=== PATIENT | male | born 1995 | race Caucasian/White ===

== ENCOUNTER → 2021-02-27 16:08 | Outpatient (CLI) | payer BC, OTHER, SELFPAY | PROVIDERS: PCP Family Medicine; Visit Provider Nurse Practitioner | DX: Z20.822 Contact with and (suspected) exposure to COVID-19 (principal) | CPT/HCPCS: C9803; U0003; U0005 ==

== ENCOUNTER 2021-05-22 16:36 | Emergency (ER) | payer BC, SELFPAY ==
--- NOTE | 2021-05-22 16:50 | XR_ITS ---
PROCEDURE INFORMATION: Exam: XR Right Ankle Exam date and time: 05/22/2021 4:50 PM Age: 25 years old Clinical indication: Injury or trauma; Fall; Blunt trauma; Ankle; Right TECHNIQUE: Imaging protocol: XR Right ankle. Views: 3 or more views. COMPARISON: No relevant prior studies available. FINDINGS: Bones/joints: Slightly displaced fracture of the distal fibula. There is no evidence of joint malalignment or dislocation. Soft tissues: Moderate lateral soft tissue swelling. IMPRESSION: 1. Moderate lateral soft tissue swelling. 2. Slightly displaced fracture of the distal fibula. 3. No evidence of acute dislocation.
[2021-05-22 17:00] VITALS: BP 123/68; PULSE 91; RESP 18; TEMP 36.8; O2SAT 99
--- NOTE | 2021-05-22 17:08 | HMH.EDUTC ---
[facility] [place] Clinical Impression: Fractured lateral malleolus Qualifiers: Encounter type: initial encounter Fracture type: closed Fracture alignment: nondisplaced Laterality: right Qualified Code(s): S82.64XA - Nondisplaced fracture of lateral malleolus of right fibula, initial encounter for closed fracture Disposition: Home, Self-Care Condition on Discharge: Good Instructions: How To Perform RICE (Rest, Ice, Compress, Elevate), Ibuprofen Additional Instructions: *No weight bearing *RICE, Rest the extremity, Ice 15-20 minutes 3-4 times daily, Compress- wear the brody wrap as discussed as much as possible to help reduce swelling and pain, Elevate the extremity when at rest *Brody wrap/orthoglass is for support and help control swelling, Be sure that is not to tight but not to loose either *Elevate when resting *Ibuprofen 800mg every 8 hours as needed for pain an inflammation. If need something more can take Tylenol in between doses of Ibuprofen to help Immediately follow up with your family doctor for new or worsening of symptoms, or no noticeable improvement over the next 3-[address] Stephens office first thing in the morning for appointment for tomorrow Return if needed Straight to ER if any life threatening symptoms Prescriptions: Ibuprofen [Ibuprofen 800mg Tablet] 800 mg PO TIDP PRN #20 tab PRN Reason: Moderate Pain Transmission Status: Received by [facility]/pharmacy #[id number] Referrals: ProviderApoorva MD [Primary Care Provider] - Gurmeet Stephens MD [Staff Physician] - 05/23/21 (Call office first thing in the morning for appointment) Forms: Work/School Release Time of Disposition: 17:20 Medical Decision Making - David Inquiry Pt receiving controlled substance: No David was queried for this patient: No Vital Signs: 05/22/21 17:00 05/22/21 17:54 Temperature 98.3 F 98.3 F Temperature Source Oral Pulse Rate 91 H Pulse Rate [Left] 91 H Respiratory Rate 18 18 Blood Pressure 123/68 Blood Pressure [Right Arm] 123/68 Blood Pressure Mean [Right Arm] 86 02 Sat by Pulse Oximetry 99 - Radiology Data #1 Image(s): Ankle Image Reviewed: Yes I have reviewed radiologist's interpretation IMPRESSION: 1. Moderate lateral soft tissue swelling. 2. Slightly displaced fracture of the distal fibula. 3. No evidence of acute dislocation. - Physician Consults Physician Consulted: Dr Stephens Time: 17:15 Reason -: Orthopedic Eval/Care Comment/Response: spoke with Dr Stephens and he viewed xray and agreed, advised to placed in short leg splint, RICE ibuprofen and he will see him in the office tomorrow [facility] [place] - General Stated complaint: AO 05/22 @1530@HOME INJURED r ANKLE Time Seen by Provider: 05/22/21 17:08 Mode of Arrival: Ambulatory Source of Information: Patient Limitations: No Limitations Description of Symptoms (Recalled from Triage Doc. by RN): pt states he fell on ice earlier today. pt is now c/o bruising, swelling and pain in his R ankle. HEENT Symptoms (Recalled from RN notes): No Resp Symptoms (Recalled from RN notes): No Skin Symptoms (Recalled from RN notes): No MS Symptoms (Recalled from RN notes): Yes Functional Status (Recalled from RN notes): wnl - History of Present Illness Provider Complaint: Patient state that he was getting in his truck when he slipped on the ice and landed on his right ankle State that ever since he has been having pain and swelling along with bruising States he thought it would be ok but after a couple hours he was still having pain so he came in to get it checked out - Related Data Previous Rx's Medication Instructions Recorded Ibuprofen [Ibuprofen 800mg 800 mg PO TIDP PRN #20 tab 05/22/21 Tablet] Allergies Allergy/AdvReac Type Severity Reaction Status Date / Time No Known Allergies Allergy Verified 05/22/21 17:07 - Worker's Comp Is this a Worker's Comp case?: No [facility] History - Hepatitis A Screen Drug use history?: No High risk
[2021-05-22 17:54] VITALS: BP 123/68; PULSE 91; RESP 18; TEMP 36.8
== END 2021-05-22 17:56 | disposition home or self-care (01) ==
PROVIDERS: Emergency Provider Nurse Practitioner
DX: S82.64XA Nondisplaced fracture of lateral malleolus of right fibula, initial encounter for closed fracture (principal); W00.2XXA Other fall from one level to another due to ice and snow, initial encounter
CPT/HCPCS: 29515; 73610; 99203; G0463

== ENCOUNTER → 2021-05-25 09:05 | Outpatient (CLI) | payer BC, SELFPAY ==
[2021-05-25 10:08] LABS: Basophils # 0.2 K/mm3 (0-0.2); Basophils % 2.1 % (0.1-2.0); Eosinophils # 0.2 K/mm3 (0.0-0.4); Eosinophils % 2.5 % (0.1-12.0); Hemoglobin 15.8 g/dL (14.1-18.0); Lymphocytes # 3.7 K/mm3 (0.7-4.5); Mean Corpuscular HGB Conc 33.6 g/dL (31.8-35.4); Mean Corpuscular Hemoglobin 30.1 pg (27.0-31.2); Mean Corpuscular Volume 89.6 fl (80-94); Mean Platelet Volume 9.1 fl (7.4-10.4); Monocytes # 0.5 K/mm3 (0.1-1.0); Monocytes % 5.1 % (1.7-9.3); Neutrophils # 4.6 K/mm3 (1.8-7.8); Neutrophils % 50.3 % (37.0-80.0); Platelet Count 263 K/mm3 (142-424); Red Blood Count 5.24 M/mm3 (4.60-6.20); Red Cell Distribution Width 13.4 % (11.5-17.5); White Blood Count 9.2 K/mm3 (4.8-10.8)
[2021-05-25 11:39] LABS: Anion Gap 11.5 mEq/L (5-15); Blood Urea Nitrogen 10 mg/dl (9-20); Calcium 8.9 mg/dl (8.4-10.2); Carbon Dioxide 30 mmol/L (22.0-30.0); Chloride 101 mmol/L (98-107); Estimated Glomerular Filt Rate 120 ml/min (>60); GFR (African American) 145 ML/MIN (>60); Glucose 86 mg/dl (74-100); Potassium 4.5 mmoL/L (3.5-5.1); Sodium 138 mmol/L (136-145)
== END ==
PROVIDERS: PCP Family Medicine; Visit Provider Orthopaedic Surgery
DX: Z01.812 Encounter for preprocedural laboratory examination (principal); Z11.52 Encounter for screening for COVID-19; S82.63XA Displaced fracture of lateral malleolus of unspecified fibula, initial encounter for closed fracture
CPT/HCPCS: 36415; 80048; 85025; C9803; U0003; U0005

== ENCOUNTER 2021-05-27 06:04 | Day surgery (SDC) | payer BC, SELFPAY ==
[2021-05-27] VITALS (14 sets, daily range): BP systolic 103–128; BP diastolic 57–75; PULSE 66–83; RESP 14–18; TEMP 36.6–43; O2SAT 94–99; BMI 20.7
--- NOTE | 2021-05-27 07:08 | P.PN_ITS ---
[facility] Anesthesia Checklist - Patient Identification Patient Identification: Arm Band - Structural Data Admitted From: Home Planned Operative Procedure/s: ORIF ankle Consent for Planned Operative Procedure(s) Verified: Yes - NPO Status Verified Time NPO: 00:00 - Additional verifications Anesthesia Reactions: No Hx Blood Transfusions: No Blood Transfusion Reaction: No - Airway Assessment C-Spine Mobility Assessed: Yes TMJ Mobility Assessed: Yes Dentition: Good Dentition - Neurological Assessment Level of Consciousness: Awake Hx Seizures: No Numbness or tingling in extremities: No - Anesthesia Plan Anesthesia Risk discussed: Yes Anesthesia Plan: Verified ASA Class: II Anesthesia Type: General w/block [facility] History I have reviewed the patient's past medical history: Yes Medical History: Denies:: Cancer, Diabetes Mellitus Type 1, Diabetes Mellitus Type 2, Internal Pacemaker, MRSA, Seizures *Have you ever received a pneumonia vaccine?: No *Have you received a flu vaccine this season?: No Other Medical History: Denies: Blood Transfusion Reaction Anesthesia experience/problems:: None Other Surgeries: No: Pacemaker Amputation: No Fractures: No - *Social History Last grade of school completed: High school graduate Smoking Status: Current every day smoker Tobacco Type: cigarettes # Packs/Day (cigarettes): 1 Alcohol Intake: never Substance Use Type: marijuana Last Used Substance: hours (ago) *Occupational Status:: employed Housing: house Household Members: family *Travel in the last 8 weeks: None Family Hx:: Coronary Artery Disease, Heart Attack, Thyroid Disorder
--- NOTE | 2021-05-27 09:49 | XR_ITS ---
FINAL REPORT CLINICAL HISTORY: ORIF RT ANKLE 37 sec FINDINGS: FLUOROSCOPY TIME Fluoroscopic guidance was provided to the operating services. Forty-six spot films were obtained. There has been ORIF of the ankle. 37 seconds of fluoroscopy time was utilized. IMPRESSION: 37 seconds of fluoroscopy time. Reviewed, Interpreted and Dictated by Christian Natarajan III, MD Transcribed by Rivera Holbrook Authenticated by Christian Natarajan III, MD on 05/27/2021 12:20:04 PM [facility]
--- NOTE | 2021-05-27 10:18 | P.PN_ITS ---
[facility] [place] Anesthesia Record Part I Intake, IV Amount: 1,000 Estimated blood loss (mL): 10 Urine output (mL): 0 Blood Pressure: 110/57 SaO2: 99 Pulse Rate: 77 Respiratory Rate: 14 Temperature: 99.3 F Patient is:: Drowsy Stable to PACU at:: 10:16
--- NOTE | 2021-05-27 11:03 | HMH.OPNOTE ---
Date of procedure: 05/27/21 Pre-op Diagnosis:: Closed, displaced lateral malleolus fracture, right ankle Post-op Diagnosis:: Same Procedure performed:: Open reduction and internal fixation, right ankle Surgeon:: Gurmeet Stephens MD Financial Reporting Advisor(s):: Kala Garza PA-C REAL ESTATE SALESPERSON:: Other (Lalito Nunez) Anesthesia: regional (Adductor canal and popliteal nerve blocks), LMA Estimated blood loss (mL): 5 Clinical Note:: Patient is a 25-year-old male who sustained a closed, displaced, lateral malleolar fracture of the right ankle. The lateral malleolus fracture is displaced with incongruity of the articular surface. However, no talar shift was noted. Following a detailed discussion about the management options including both the nonoperative and operative, patient elected for surgical remediation.? Surgery is indicated to anatomically reduce and stabilize the fracture to relieve the pain and restore/improve the function. Please refer to my office note for full details. Operative findings:: Preoperative imaging findings and diagnosis correlate with the intraoperative findings. There is a displaced, Rogers A type lateral malleolus fracture without talar shift.? The inferior tibiofibular syndesmosis is noted to be stable/intact after fixation of the lateral malleolar fracture. Therefore, syndesmosis fixation is deemed unnecessary. Operative note:: Prior to surgery patient was met in the preoperative assessment area and positively identified. I again reviewed the clinical and imaging findings, diagnosis, management options including both nonsurgical and surgical and the expected results. Given the clinical and radiological findings, I have recommended an open reduction and internal fixation of the distal fibula fracture with or without stabilization of the syndesmosis as indicated intraoperatively.? I have outlined where the incision would be on the skin. Risks of surgery discussed include but are not limited to- infection, injury to nerves and blood vessels, injury to tendons, compartment syndrome, DVT/PE, malunion, nonunion, stiffness, CRPS (complex regional pain syndrome- pain, sensory and temperature changes, swelling and stiffness), painful hardware, loss of fixation, arthritis, incomplete relief of pain, incomplete return of function, and likely need for further surgery in future and also the risks of anesthesia including heart attack, stroke, and .? I have also explained how additional surgery may be required. I explained the weightbearing status, immobilization required, the likely need for physical therapy, the possibility of stiffness, chronic pain and we've also discussed the option of nonsurgical treatment. The patient expressed full understanding and asked appropriate questions. All the questions were answered by me, and patient verbalized a good understanding.? Patient wished to proceed with surgery as planned, no guarantees or assurances were given or implied. The patient was brought to the operating room, placed supine on the operating table, and a general anesthesia was administered by the nuclear medicine medical director. Prior to that he also had a nerve block administered by the nuclear medicine medical director. All the bony prominences were appropriately padded. A small bump was placed under the right hip. A well-padded tourniquet cuff was applied over the right upper thigh. The limb was then prepped and draped in the usual sterile fashion. A preprocedure timeout was performed as per hospital protocol. Administration of prophylactic antibiotics was confirmed with the nuclear medicine medical director.? Skin incision was marked for the lateral approach to the distal fibula. The limb was exsanguinated with Esmarch bandage and tourniquet inflated to 300 mmHg (please see nursing notes for total tourniquet time).? Skin incision was made for the lateral approach to the distal fibula. The dissection was carried through the subcutaneous tissue and the fracture was exposed carefully using the AO principles of management. T
--- NOTE | 2021-05-27 12:49 | HMH.ANESII ---
[facility] Anesthesia Record Part II Discharge Time: 10:53 Destination: Surgical Day Care (OP Surgery) PACU nurse assessment reviewed?: Yes Patient Condition:: Good Anesthesia Complications:: None Swallowing reflex intact?: Yes Cyanosis?: No Blood Pressure: 127/75 Pulse Rate: 79 Temperature: 97.8 F Mental Status: Alert & Oriented Pain level:: 0 Nausea and/or vomitting:: None Intake, IV Amount: 0
== END 2021-05-27 12:00 | disposition home or self-care (01) ==
LOC: OR 06:05
PROVIDERS: PCP Family Medicine; Visit Provider Orthopaedic Surgery
PROC: (CPT 27792; principal; 2021-05-27 07:30)
DX: S82.61XA Displaced fracture of lateral malleolus of right fibula, initial encounter for closed fracture (principal); F17.210 Nicotine dependence, cigarettes, uncomplicated; W00.2XXA Other fall from one level to another due to ice and snow, initial encounter
CPT/HCPCS: 27792; 73600; 76000; 96374; C1713; C1776; J2405

== ENCOUNTER → 2021-06-11 11:42 | Outpatient (CLI) | payer BC, SELFPAY ==
--- NOTE | 2021-06-11 11:45 | XR_ITS ---
FINAL REPORT CLINICAL HISTORY: sp ORIF FINDINGS: RIGHT ANKLE Three views demonstrate no acute fracture or dislocation. There are postoperative changes of the distal fibula with screw plate and multiple screws. Lateral soft tissue swelling is seen. IMPRESSION: Postsurgical changes without acute process. Reviewed, Interpreted and Dictated by Christian Natarajan III, MD Transcribed by Gardenia Kinney Authenticated by Christian Natarajan III, MD on 06/11/2021 01:10:08 PM [facility]
== END ==
PROVIDERS: PCP Family Medicine; Visit Provider Orthopaedic Surgery
DX: M25.571 Pain in right ankle and joints of right foot (principal); Z09 Encounter for follow-up examination after completed treatment for conditions other than malignant neoplasm
CPT/HCPCS: 73610

== ENCOUNTER 2021-06-11 12:00 | Outpatient (RCR) | payer BC, SELFPAY | END 2021-06-11 13:00 | disposition home or self-care (01) | LOC: PT 12:00 | PROVIDERS: Visit Provider Orthopaedic Surgery | DX: M25.571 Pain in right ankle and joints of right foot (principal); S82.64XD Nondisplaced fracture of lateral malleolus of right fibula, subsequent encounter for closed fracture with routine healing | CPT/HCPCS: 97760 ==

== ENCOUNTER → 2021-07-16 10:26 | Outpatient (CLI) | payer BC, SELFPAY ==
--- NOTE | 2021-07-16 10:31 | XR_ITS ---
FINAL REPORT CLINICAL HISTORY: ankle fx COMPARISON: June 11, 2021 FINDINGS: RIGHT ANKLE: Three views of the right ankle were obtained. There is postoperative change from ORIF of the distal fibula that is visually stable. The joint spaces and mortise are intact. There is lateral soft tissue swelling. IMPRESSION: ORIF change of the distal fibula, visually stable. Reviewed, Interpreted and Dictated by Christian Natarajan III, MD Transcribed by Rivera Holbrook Authenticated by Christian Natarajan III, MD on 07/16/2021 11:29:38 AM [facility]
== END ==
PROVIDERS: PCP Family Medicine; Visit Provider Orthopaedic Surgery
DX: S82.61XA Displaced fracture of lateral malleolus of right fibula, initial encounter for closed fracture (principal)
CPT/HCPCS: 73610

== ENCOUNTER 2021-08-16 09:00 | Outpatient (RCR) | payer BC, SELFPAY ==
--- NOTE | 2021-07-23 09:30 | HMH.PTOPEV ---
PT Outpatient Evaluation Rehab PT Outpatient Evaluation Start: 07/23/21 08:04 Freq: Status: Active Protocol: Document 07/23/21 08:22 GALEN (Rec: 07/23/21 09:30 GALEN [id number]) Electronically Signed By Issac Quevedo, PT 07/23/21 08:22 Outpatient Therapy Subjective History Subjective History Pt presents s/p right ankle distal fibula fx on 05/22/21, s/ p ORIF sx. on 07/25/21. Pt reports injury occurred d/t slip on ice, 'been in a boot since surgery, and starting walking on it Thursday'. Pt reports 'normal' post-op soreness, stiffness, and weakness in right ankle, and ' it's been a bit more painful since I've started walking on it.' Chief Complaint Pain,Stiff,Swelling,Weakness Symptom Type Ache,Dull Symptoms Relieved By Rest/Positioning,Ice Symptoms Aggravated By Standing,Walking Prior Functional Limitations None Current Functional Limitations Housework,Standing,Walking, Stairs Symptom Description Constant but Variable Level of pain today (0-10) 3 Pain scale - at its best (0-10) 2 Pain scale - at its worst (0-10) 5 Ankle/Foot Eval Gait Observation General Gait Pattern Observation Antalgic Gait Palpation Tenderness right Ankle/Foot Palpation Findings Tenderness Ankle/Foot Palpation Overall Comment distal fibula 1-2/4, 5th prox. met-head 2-3/4 ROM Ankle/Foot Dorsiflexion w/Knee Extended 0-2 Active Range Motion (degrees) Ankle/Foot Plantar Flexion Active Range 0-21 of Motion (degrees) Ankle/Foot Eversion Active Range of 0-8 Motion (degrees) Ankle/Foot Inversion Active Range of 0-11 Motion (degrees) Ankle/Foot ROM Limitations Soft Tissue Tightness MMT Ankle Dorsiflexion Strength Grade 4- Good- Ankle Plantarflexion Strength Grade 4- Good- Foot Eversion Strength Grade 3+ Fair+ Foot Inversion Strength Grade 3+ Fair+ Outpatient Therapy Assessment Impairments Problems/Impairmments Palpation Tenderness,Impaired Range of Motion,Impaired Strength,Impaired Gait Pattern ,Impaired Walking,Impaired Standing,Impaired Stair Climbing,Impaired Work Activities,Subjective C/O Pain ,Impaired Self Care/Self
== END 2021-08-16 09:05 | disposition home or self-care (01) ==
LOC: PT 09:00
PROVIDERS: PCP Family Medicine; Visit Provider Orthopaedic Surgery
DX: S82.63XA Displaced fracture of lateral malleolus of unspecified fibula, initial encounter for closed fracture (principal)
CPT/HCPCS: 97014; 97016; 97110; 97112; 97140; 97163; G0283

== ENCOUNTER → 2021-08-20 09:15 | Outpatient (CLI) | payer BC, SELFPAY ==
--- NOTE | 2021-08-20 09:20 | XR_ITS ---
FINAL REPORT CLINICAL HISTORY: ankle fracture COMPARISON: July 16, 2021 FINDINGS: RIGHT ANKLE: Three views of the right ankle were obtained. There are postoperative changes in the distal fibula with screw plate and multiple screws, stable from the previous exam. The joint spaces and mortise are intact. There is no soft tissue abnormality. IMPRESSION: Postoperative changes as above. Reviewed, Interpreted and Dictated by Christian Natarajan III, MD Transcribed by Rivera Holbrook Authenticated by Christian Natarajan III, MD on 08/20/2021 11:03:24 AM [facility]
== END ==
PROVIDERS: PCP Family Medicine; Visit Provider Orthopaedic Surgery
DX: S82.61XA Displaced fracture of lateral malleolus of right fibula, initial encounter for closed fracture (principal)
CPT/HCPCS: 73610

== ENCOUNTER 2022-01-12 17:06 | Emergency (ER) | payer BC, SELFPAY ==
[2022-01-12 17:40] VITALS: BP 115/69; PULSE 70; RESP 19; TEMP 36.9; O2SAT 98; BMI 19.9
[2022-01-12 17:57] VITALS: BP 115/69; PULSE 70; RESP 19; TEMP 36.9; O2SAT 98
[2022-01-12 17:58] LABS: UTC Influenza A Antigen Negative (Negative); UTC Influenza B Antigen Negative (Negative)
--- NOTE | 2022-01-12 18:51 | EXP.UTC ---
Discharge Plan Disposition Patient Disposition: Home, Self-Care Condition: Good Prescriptions Prescriptions: No Action acetaminophen 500 MG tablet 500 mg PO NEEDED PRN (Reason: pain) Referrals Follow up/Referrals: Misael Renteria MD [Primary Care Provider] - See instructions Activity Restrictions/Add. Instructions Additional Instructions/Restrictions: *Monitor Temp, Over the counter Motrin or Tylenol as directed/as needed Tylenol every 4 hours and Motrin every 6 hours (as long as your family doctor has told you that you can take it) for fever or pain. and straight to ER if unable to lower temp less than 101.0 after medication given *Warm salt water gargles may help to soothe the throat *Throat Lozenges? *Warm fluids like tea with honey may help to soothe the throat? *Sleep elevated *Humidifier/Vaporizer Your throat swab was sent for culture. Those results are typically sent to your primary care. Be sure to follow up in 2-3 days with your family doctor/primary care physician if no improvement so they can review those result and treat if necessary. If you don?t have a primary care doctor, I recommend you get one but in the mean time, you will have to return to a walk in clinic Follow up IMMEDIATELY for new or worsening symptoms or no Noticeable improvement over the next 48-72 hours. 911 for difficulty breathing or swallowing You were tested for today for COVID19 your test result should be back in the next 24-48 hours, you may check your results on the [facility] My Health Portal Make sure to take your Vitamins Vit. C Vit D and Zinc if you can take them Clinical Impressions Clinical Impression: Viral upper respiratory infection Stand Alone Forms Stand Alone Forms: Work/School Release Instructions Patient Instructions: DI for Viral Upper Respiratory Infection -- Adult Discharge ED Provider: Ellen Koroma [facility] General Stated complaint: covid test Mode of Arrival: Ambulatory Source of Information: Patient Limitations: No Limitations Time Seen by Provider: 01/12/22 18:51 Description of Symptoms (Recalled from Triage Doc. by RN): PATIENT C/O HEADACHE, BODY ACHES, SORE THROAT, RUNNY NOSE, COUGH AND SNEEZING SINCE THIS MORNING HEENT Symptoms (Recalled from RN notes): Yes Resp Symptoms (Recalled from RN notes): Yes Skin Symptoms (Recalled from RN notes): No MS Symptoms (Recalled from RN notes): No Functional Status (Recalled from RN notes): WNL History of Present Illness Provider Complaint: Patient states that he woke up today having sore throat, body aches, chills and sneezing States that he thinks he may have had fever earlier so he came in to get checked for flu strep and COVID Related Data Home Medications Medication Instructions Recorded Confirmed acetaminophen 500 mg tablet 500 mg PO NEEDED PRN pain 05/27/21 09/17/21 Allergies Allergy/AdvReac Type Severity Reaction Status Date / Time No Known Allergies Allergy Verified 09/17/21 09:40 Worker's Comp Is this a Worker's Comp case?: No PFSH PFSH Medical History (Updated 01/12/22 @ 18:54 by Ellen Koroma APRN) Anxiety Depression Surgical History (Updated 01/12/22 @ 17:49 by Kelly Goodwin RN) History of colon surgery History of surgery on lower extremity Social History Smoking Status: Current every day smoker tobacco type: cigarettes packs per day: 1 second hand exposure: No alcohol intake: never substance use type: marijuana current occupational status: employed Travel in the last 8 weeks: None household members: family housing: house 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
[2022-01-12 19:04] LABS: UTC Strep Screen (Rapid) Negative (Negative)
== END 2022-01-12 19:25 | disposition home or self-care (01) ==
PROVIDERS: Emergency Provider Nurse Practitioner; PCP Family Medicine
DX: U07.1 COVID-19 (principal)
CPT/HCPCS: 87804; 87880; 99212; C9803; G0463; U0003; U0005

== ENCOUNTER 2022-03-13 20:16 | Emergency (ER) | payer OTHER, BC, SELFPAY ==
[2022-03-13 20:28] VITALS: BP 118/70; PULSE 82; RESP 18; TEMP 36.6; O2SAT 98; BMI 20.3
--- NOTE | 2022-03-13 20:30 | PC.NURSE ---
Advised loss control representative that is with patient to call his employer to determine what is needed for completion.
--- NOTE | 2022-03-13 20:47 | XR_ITS ---
PROCEDURE INFORMATION: Exam: XR Left Forearm Exam date and time: 03/13/2022 9:06 PM Age: 26 years old Clinical indication: Injury or trauma; Other: Laceration; Work related; Arm, lower; Left; Additional info: Laceration, rule out debris. Lac at work TECHNIQUE: Imaging protocol: Radiologic exam of the Left forearm. Views: 2 views. COMPARISON: No relevant prior studies available. FINDINGS: Bones/joints: No acute fracture. No dislocation. Soft tissues: 0.4 cm radiopaque foreign body along dorsal medial aspect of hand. Other findings: Bandage/dressing overlying forearm. IMPRESSION: 1. No fracture. 2. Foreign body.
--- NOTE | 2022-03-13 21:03 | HMH.EDWNDL ---
Discharge Plan Disposition Patient Disposition: Home, Self-Care Chief Complaint: Wound/Laceration Prescriptions Prescriptions: No Action acetaminophen 500 MG tablet 500 mg PO NEEDED PRN (Reason: pain) Referrals Follow up/Referrals: Misael Renteria MD [Primary Care Provider] - See instructions Clinical Impressions Clinical Impression: Laceration Instructions Patient Instructions: DI for Laceration Repair Discharge ED Provider: Murali Singh Wound/Laceration HPI General Chief Complaint: Wound/Laceration Stated Complaint: wc 000 lac to l eft arm Time Seen by Provider: 03/13/22 21:03 Mode of Arrival: Family Vehicle Source of Information: Patient and Medical Record Limitations: No Limitations Description of Symptoms (Recalled from ER Triage Doc. 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 Patient is A &oX4. Patient reports his arm slipped and hit off the box and himself. History of Present Illness HPI narrative: lac to dorsum of lt forearm with boxcutter at work Onset (ago): minute(s) Extremity Location: Left: forearm Place: work Patient tetanus UTD: No Context: sharp object use Associated symptoms: none Related Data Home Medications Medication Instructions Recorded Confirmed acetaminophen 500 mg tablet 500 mg PO NEEDED PRN pain 05/27/21 09/17/21 Allergies Allergy/AdvReac Type Severity Reaction Status Date / Time No Known Allergies Allergy Verified 09/17/21 09:40 [facility] Disclaimer: The information contained in this section may have been updated after the patient was seen, as this information can be updated by other users. 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 current occupational exposures/hazards: No caffeine: Yes ROS Obtained: Yes All systems reviewed & no additional complaints except as documented Physical Exam General General appearance: alert Head Head exam: normocephalic Eye Eye exam: Present PERRL and EOMI ENT ENT exam: Present mucous membranes moist Neck Neck exam: Present trachea midline Respiratory Respiratory exam: Present normal lung sounds bilaterally Cardiovascular Cardiovascular exam: Present regular rate Expanded Upper Extremity Exam Left: Forearm/Wrist exam: Present full ROM and laceration Neuromotor exam: Normal wrist extension Neurosensory exam: Normal radial nerve Vascular exam: Normal radial pulse Neurological Exam Neurological exam: Present alert, oriented X3 and CN II-XII intact; Absent motor sensory deficit Psychiatric Psychiatric exam: Present normal affect Skin Skin exam: Absent rash Medical Decision Making Medical Records Medical records reviewed: Yes I reviewed the patient's medical records. David Inquiry Pt receiving controlled substance: No Vital Signs: 03/13/22 20:28 Temperature 97.8 F Temperature Source Oral Pulse Rate [Right Brachial] 82 Respiratory Rate 18 Blood Pressure [Right Arm] 118/70 Blood Pressure Mean [Right Arm] 86 Blood Pressure Source [Right Arm] Automatic Cuff Blood Pressure Position [Right Arm] Sitting 02 Sat by Pulse Oximetry 98 Oxygen Delivery Method Room Air Orders (Tests/Meds): ED MEDICATIONS Generic Name Dose Route Start Last Admin Trade Name Freq PRN Reason Stop Dose Admin Tetanus/Diphtheria Toxoids 0.5 ml 03/13/22 21:38 03/13/22 21:
--- NOTE | 2022-03-13 21:48 | PC.NURSE ---
Waiting on employer to bring workers' comp pack back to be filled out. Patient care is complete. Patient is currently sitting in bed, on his phone. No obvious distress.
[2022-03-13 22:02] VITALS: BP 122/78; PULSE 80; RESP 18; TEMP 36.6; O2SAT 98
== END 2022-03-13 22:05 | disposition home or self-care (01) ==
PROVIDERS: Emergency Provider Emergency Medicine; PCP Family Medicine
DX: S41.112A Laceration without foreign body of left upper arm, initial encounter (principal); W26.0XXA Contact with knife, initial encounter; Y99.0 Civilian activity done for income or pay; Z23 Encounter for immunization; Z72.0 Tobacco use; F12.90 Cannabis use, unspecified, uncomplicated; F41.9 Anxiety disorder, unspecified; F32.A Depression, unspecified
CPT/HCPCS: 12031; 73090; 90471; 90714; 99283

== ENCOUNTER 2023-10-03 16:36 | Emergency (ER) | payer BC, SELFPAY ==
[2023-10-03 16:38] VITALS: BP 124/73; PULSE 85; RESP 18; TEMP 36.7; O2SAT 98; BMI 14.9
--- NOTE | 2023-10-03 17:57 | ED_ITS ---
Discharge Plan Disposition Patient Disposition: Home, Self-Care Condition: Good Prescriptions Prescriptions: New fluticasone propionate [Flonase Allergy Relief] 50 mcg/actuation spray,suspension 1 spray intranasal Q12H Qty: 16 0RF Rx Instructions: administer into each nostril No Action acetaminophen 500 MG tablet 500 mg PO NEEDED PRN (Reason: pain) Referrals Follow up/Referrals: Misael Renteria MD [Primary Care Provider] - See instructions Activity Restrictions/Add. Instructions Additional Instructions/Restrictions: Take medication as prescribed. Increase fluids and rest. If symptoms persist or worsen, follow up with PCP or return to clinic. Clinical Impressions Clinical Impression: Viral upper respiratory infection, Acute dysfunction of both eustachian tubes Instructions Patient Instructions: DI for Viral Upper Respiratory Infection -- Adult, DI for Eustachian Tube Dysfunction-Adult Discharge ED Provider: Ana Segovia [facility] General Stated complaint: sore throat, poss sinus pressure Mode of Arrival: Ambulatory Source of Information: Patient Limitations: No Limitations Time Seen by Provider: 10/03/23 17:35 Description of Symptoms (Recalled from Triage Doc. by RN): SORE THROAT, FEVER AND HEAD CONGESTION HEENT Symptoms (Recalled from RN notes): Yes Resp Symptoms (Recalled from RN notes): No Skin Symptoms (Recalled from RN notes): No MS Symptoms (Recalled from RN notes): No Functional Status (Recalled from RN notes): WNL History of Present Illness Provider Complaint: Pt states that he has not felt well the last couple of days. He reports a sore throat and feeling sinus drainage. He states that if he turns his head really fast it will make him dizzy. Related Data Home Medications Medication Instructions Recorded Confirmed acetaminophen 500 mg tablet 500 mg PO NEEDED PRN pain 05/27/21 09/17/21 Previous Rx's Medication Instructions Recorded fluticasone propionate 50 1 spray intranasal Q12H #16 grams 10/03/23 mcg/actuation nasal spray,suspension (Flonase Allergy Relief) Allergies Allergy/AdvReac Type Severity Reaction Status Date / Time No Known Allergies Allergy Verified 09/17/21 09:40 Worker's Comp Is this a Worker's Comp case?: No [facility] Disclaimer: The information contained in this section may have been updated after the patient was seen, as this information can be updated by other users. 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 current occupational exposures/hazards: No caffeine: Yes ROS Obtained: Yes All systems reviewed & no additional complaints except as documented Constitutional Constitutional: Reports system reviewed and no additional complaints, except as documented and Reports malaise Eyes Eyes: Reports system reviewed and no additional complaints, except as documented ENT Ears, Nose, Mouth, and Throat: Reports system reviewed and no additional complaints, except as documented, Reports dizziness, Reports nasal discharge and Reports sore throat Cardiovascular Cardiovascular: Reports system reviewed and no additional complaints, except as documented Respiratory Respiratory: Reports system reviewed and no additional complaints, except as documented Gastrointestinal Gastrointestingal: Reports system reviewed and no additional complaints, except as documented Genitourinary Male Genitourinary: Reports system reviewed and no additional complaints, except as documented Musculoskeletal Musculoskeletal: Reports system reviewed and no additional complaints, except as documented Integumentary/Breasts Skin/Breast: Reports system reviewed and no additional complaints, except as documented Neurologic Neurologic: Reports system reviewed and no additional complaints, except as documented and Reports dizziness Endocrine Endocrine: Reports system reviewed and no additional complaints, except as documented Hematologic/Lymphatic Henatologic/Lymphatic: Reports system reviewed and no additional complaints, except as documented Allergic/Immunologic Allergic/Immunologic: Reports system reviewed and no additional complaints, except as documented Physical Exam General General appearance: alert and in no apparent distress Head Head exam: atraumatic and normocephalic Eye Eye exam: Present normal appearance ENT ENT exam: Present mucous membranes moist Expanded ENT Exam External ear exam: Present normal external inspection TM/Canal exam: Bilateral TM: effusion Nose exam: Absent sinus tenderness Nasal speculum exam: Bilateral: normal Mouth exam: Present normal external inspection Teeth exam: Present normal inspection Comment: post nasal drainage Neck Neck exam: Present normal inspection; Absent lymphadenopathy Chest Chest inspection: Present normal inspection and symmetric chest wall rise Respiratory Respiratory exam: Present normal lung sounds bilaterally Cardiovascular Cardiovascular exam: Present regular rate, normal rhythm and normal heart sounds Abdominal Exam Abdominal exam: Present soft and normal bowel sounds Extremities Exam Extremities exam: Present normal inspection Back Exam Back exam: Present normal inspection Neurological Exam Neurological exam: Present alert and oriented X3 Skin Skin exam: Present warm, dry and intact Lymphatic Lymphatic Findings: no adenopathy Medical Decision Making David Inquiry Pt receiving controlled substance: No David was queried for this patient: No Vital Signs: 10/03/23 16:38 Temperature 98.0 F Temperature Source Oral Pulse Rate [Radial] 85 Respiratory Rate 18 Blood Pressure [Right Arm] 124/73 Blood Pressure Mean [Right Arm] 90 Blood Pressure Source [Right Arm] Automatic Cuff Blood Pressure Position [Right Arm] Sitting 02 Sat by Pulse Oximetry 98 Oxygen Delivery Method Room Air
[2023-10-03 18:03] VITALS: BP 124/73; PULSE 85; RESP 18; TEMP 36.7; O2SAT 98
== END 2023-10-03 18:04 | disposition home or self-care (01) ==
PROVIDERS: Emergency Provider Nurse Practitioner Family; PCP Family Medicine
DX: H69.93 Unspecified Eustachian tube disorder, bilateral (principal); R07.0 Pain in throat; J06.9 Acute upper respiratory infection, unspecified; B34.9 Viral infection, unspecified
CPT/HCPCS: 99212; 99214; G0463